=== PATIENT | female | born 1950 | race Caucasian/White ===

== ENCOUNTER 2019-11-28 13:55 | Outpatient (CLI) | payer MEDICARE, SELFPAY ==
--- NOTE | ~2019-11-28 | XR_ITS ---
XR shoulder LT min 2V DATE: 11/28/2019 14:18 INDICATION: Left shoulder pain, limited range of motion. No recent injury. TECHNIQUE: 4 views COMPARISON: None FINDINGS: No fracture or dislocation, periosteal reaction or bone destruction or abnormal soft tissue calcification. Multiple surgical clips overlie the cervical area, especially overlying the left thyroid area. Aortic arch calcification. IMPRESSION: No significant radiographic abnormality of the left shoulder Reviewed, dictated and finalized at location A.
== END 2019-11-28 13:56 | disposition home or self-care (01) ==
LOC: ANHIMG 14:00
PROVIDERS: PCP Family Medicine; Visit Provider Family Medicine
DX: M25.519 Pain in unspecified shoulder (principal)
CPT/HCPCS: 73030

== ENCOUNTER → 2020-05-13 10:59 | Outpatient (CLI) | payer MEDICARE, SELFPAY ==
--- NOTE | ~2020-05-13 | DEXA_ITS ---
Bone Density Report Name: Yomaira Asher Age: 69 Sex: Female Ethnicity: White Date of : 1950 Indication: osteopenia; monitoring treatment; parental hip fracture; postmenopausal Referring Provider: Florentino Nelson Study: Bone densitometry was performed. Exam Date: May 13, 2020 Accession number: [id number] Bone Density: Region BMD T-score Z-score Classification AP Spine (L1-L4) 0.965 -0.7 1.3 Normal Femoral Neck (Left) 0.557 -2.6 -0.9 Osteoporosis Total Hip (Left) 0.731 -1.7 -0.3 Osteopenia Femoral Neck (Right) 0.581 -2.4 -0.7 Osteopenia Total Hip (Right) 0.737 -1.7 -0.3 Osteopenia Total Hip Mean 0.734 -1.7 -0.3 Osteopenia World Health Organization criteria for BMD impression classify patients as: Normal (T-score at or above -1.0), Osteopenia (T-score between -1.0 and -2.5), or Osteoporosis (T-score at or below -2.5). 10-year Fracture Risk: FRAX not reported because: Some T-score for Spine Total or Hip Total or Femoral Neck at or below -2.5 Treated for osteoporosis Previous Exams: Region Exam Age BMD T-score BMD Change BMD Change Date g/cm2 vs Baseline vs Previous AP Spine(L1-L4) 05/13/2020 69 0.965 -0.7 -0.078* 0.075* 02/09/2018 67 0.890 -1.4 -0.153* -0.028* 07/08/2015 64 0.918 -1.2 -0.125* -0.115* 09/01/2010 59 1.033 -0.1 -0.010 0.020 04/04/2009 58 1.014 -0.3 -0.030* -0.012 01/31/2008 57 1.026 -0.2 -0.017 0.009 01/06/2007 56 1.017 -0.3 -0.027* -0.027* 11/09/2005 55 1.043 0.0 Total Hip(Left) 05/13/2020 69 0.731 -1.7 -0.076* 0.047* 02/09/2018 67 0.684 -2.1 -0.123* 0.027 07/08/2015 64 0.658 -2.3 -0.150* -0.111* 09/01/2010 59 0.768 -1.4 -0.039* -0.012 04/04/2009 58 0.780 -1.3 -0.028* 0.019 01/31/2008 57 0.760 -1.5 -0.047* 0.010 01/06/2007 56 0.751 -1.6 -0.057* -0.057* 11/09/2005 55 0.807 -1.1 Total Hip(Right) 05/13/2020 69 0.737 -1.7 -0.101* 0.047* 02/09/2018 67 0.690 -2.1 -0.148* -0.005 07/08/2015 64 0.696 -2.0 -0.142* -0.089* 09/01/2010 59 0.784 -1.3 -0.054* -0.012 04/04/2009 58 0.796 -1.2 -0.041* 0.041* 01/31/2008 57 0.755 -1.5 -0.083* 0.002 01/06/2007 56 0.753 -1.5 -0.084* -0.084* 11/09/2005 55 0.838 -0.9
--- NOTE | ~2020-05-13 | MM_ITS ---
EXAMINATION: MM screening [facility] BI w jose HISTORY: Screening TECHNIQUE: Craniocaudal and mediolateral oblique 3-D tomosynthesis images were obtained and synthetic 2-D images were generated. CAD analysis was submitted and interpreted. COMPARISON: Comparison to multiple prior studies sequentially, with oldest reviewed study dated 09/2011. BREAST PARENCHYMAL COMPOSITION: There are scattered areas of fibroglandular density. FINDINGS: There is no evidence of suspicious mass, calcification, or architectural distortion to sugg est malignancy in either breast. There has been no suspicious interval change. IMPRESSION: 1. No mammographic evidence of malignancy. 2. Recommend routine screening mammography in one year. BI-RADS Category 1: Negative Reviewed, dictated and finalized at location A. THESIOLOGY PHYSICIAN
== END ==
PROVIDERS: PCP Family Medicine; Visit Provider Family Medicine
DX: Z12.31 Encounter for screening mammogram for malignant neoplasm of breast (principal); M81.0 Age-related osteoporosis without current pathological fracture; M85.852 Other specified disorders of bone density and structure, left thigh; M85.851 Other specified disorders of bone density and structure, right thigh
CPT/HCPCS: 77063; 77067; 77080

== ENCOUNTER → 2021-09-08 10:07 | Outpatient (CLI) | payer MEDICARE, SELFPAY ==
--- NOTE | ~2021-09-08 | MM_ITS ---
EXAMINATION: MM screening [facility] BI w jose HISTORY: Screening TECHNIQUE: Craniocaudal and mediolateral oblique 3-D tomosynthesis images were obtained and synthetic 2-D images were generated. CAD analysis was submitted and interpreted. COMPARISON: Comparison to multiple prior studies sequentially, with oldest reviewed study dated 10/2013. BREAST PARENCHYMAL COMPOSITION: There are scattered areas of fibroglandular density. FINDINGS: There is no evidence of suspicious mass, calcification, or architectural distortion to sugg est malignancy in either breast. There has been no suspicious interval change. IMPRESSION: 1. No mammographic evidence of malignancy. 2. Recommend routine screening mammography in one year. BI-RADS Category 1: Negative Reviewed, dictated and finalized at location A.
== END ==
PROVIDERS: PCP Family Medicine; Visit Provider Family Medicine
DX: Z12.31 Encounter for screening mammogram for malignant neoplasm of breast (principal)
CPT/HCPCS: 77063; 77067

== ENCOUNTER → 2022-05-20 10:11 | Outpatient (CLI) | payer MEDICARE, SELFPAY ==
--- NOTE | ~2022-05-20 | DEXA_ITS ---
Bone Density Report Name: HILL CORONA Age: 71 Sex: Female Ethnicity: White Date of : 1950 Indication: osteopenia; monitoring treatment; parental hip fracture; postmenopausal Referring Provider: Marina Ortez Study: Bone densitometry was performed. Exam Date: May 20, 2022 Accession number: [id number] Bone Density: Region BMD T-score Z-score Classification AP Spine (L1-L4) 0.979 -0.6 1.5 Normal Femoral Neck (Left) 0.540 -2.8 -1.0 Osteoporosis Total Hip (Left) 0.738 -1.7 -0.1 Osteopenia Femoral Neck (Right) 0.565 -2.6 -0.7 Osteoporosis Total Hip (Right) 0.729 -1.7 -0.2 Osteopenia Total Hip Mean 0.734 -1.7 -0.2 Osteopenia World Health Organization criteria for BMD impression classify patients as: Normal (T-score at or above -1.0), Osteopenia (T-score between -1.0 and -2.5), or Osteoporosis (T-score at or below -2.5). 10-year Fracture Risk: FRAX not reported because: Some T-score for Spine Total or Hip Total or Femoral Neck at or below -2.5 Treated for osteoporosis Previous Exams: Region Exam Age BMD T-score BMD Change BMD Change Date g/cm2 vs Baseline vs Previous AP Spine(L1-L4) 05/20/2022 71 0.979 -0.6 -0.065* 0.014 05/13/2020 69 0.965 -0.7 -0.078* 0.075* 02/09/2018 67 0.890 -1.4 -0.153* -0.028* 07/08/2015 64 0.918 -1.2 -0.125* -0.115* 09/01/2010 59 1.033 -0.1 -0.010 0.020 04/04/2009 58 1.014 -0.3 -0.030* -0.012 01/31/2008 57 1.026 -0.2 -0.017 0.009 01/06/2007 56 1.017 -0.3 -0.027* -0.027* 11/09/2005 55 1.043 0.0 Total Hip(Left) 05/20/2022 71 0.738 -1.7 -0.069* 0.007 05/13/2020 69 0.731 -1.7 -0.076* 0.047* 02/09/2018 67 0.684 -2.1 -0.123* 0.027 07/08/2015 64 0.658 -2.3 -0.150* -0.111* 09/01/2010 59 0.768 -1.4 -0.039* -0.012 04/04/2009 58 0.780 -1.3 -0.028* 0.019 01/31/2008 57 0.760 -1.5 -0.047* 0.010 01/06/2007 56 0.751 -1.6 -0.057* -0.057* 11/09/2005 55 0.807 -1.1 Total Hip(Right) 05/20/2022 71 0.729 -1.7 -0.109* -0.008 05/13/2020 69 0.737 -1.7 -0.101* 0.047* 02/09/2018 67 0.690 -2.1 -0.148* -0.005 07/08/2015 64 0.696 -2.0 -0.142* -0.089* 09/01/2010 59 0.784 -1.3 -0.054* -0.012 04/04/2009 58 0.796 -1.2 -0.041* 0.041* 01/31/2008 57 0.755 -1.5
== END ==
PROVIDERS: PCP Emergency Medicine; Visit Provider Physician Assistant
DX: Z78.0 Asymptomatic menopausal state (principal); M81.0 Age-related osteoporosis without current pathological fracture; M85.852 Other specified disorders of bone density and structure, left thigh; M85.851 Other specified disorders of bone density and structure, right thigh
CPT/HCPCS: 77080

== ENCOUNTER → 2023-03-02 10:21 | Outpatient (CLI) | payer MEDICARE, SELFPAY ==
--- NOTE | ~2023-03-02 | MM_ITS ---
EXAMINATION: MM screening [facility] BI w jose HISTORY: Screening mammogram TECHNIQUE: Craniocaudal and mediolateral oblique 3-D tomosynthesis images were obtained and synthetic 2-D images were generated. CAD analysis was submitted and interpreted. COMPARISON: September 08, 2021, May 13, 2020, February 09, 2018 bilateral screening mammogram examinat ions BREAST PARENCHYMAL COMPOSITION: There are scattered areas of fibroglandular density. FINDINGS: Stable posterior upper outer quadrant benign-appearing left intramammary lymph nodes. Stabl e mild fibroglandular asymmetry. There is no evidence of suspicious mass, calcification, or android architect ural distortion to suggest malignancy in either breast. There has been no suspicious interval change. IMPRESSION: 1. No mammographic evidence of malignancy. 2. Recommend routine screening mammography in one year. BI-RADS Category 2: Benign finding(s). Reviewed, dictated and finalized at location A.
== END ==
PROVIDERS: PCP Nurse Practitioner Family; Visit Provider Nurse Practitioner Family
DX: Z12.31 Encounter for screening mammogram for malignant neoplasm of breast (principal)
CPT/HCPCS: 77063; 77067

== ENCOUNTER 2023-08-09 17:32 | Emergency (ER) | payer MEDICARE, SELFPAY ==
--- NOTE | 2023-08-09 17:39 | ED.SKABFB ---
HPI - Skin/Abscess/Foreign Bdy General Chief complaint: Skin/Abscess/Foreign Body Stated complaint: Rash Source: patient and RN notes reviewed Mode of arrival: ambulatory Limitations: no limitations History of Present Illness HPI narrative: Patient is a 72-year-old female who presents to the [facility] with complaints of rash to the back of her neck. She states that the rash has been present for the last couple weeks. She states that the rash developed about 1 week after getting a haircut with a shaved her neck for the 1st time. States that the rash has always been red and itchy. It will come and go. She denies any other symptoms. Related Data Home Medications Medication Instructions Recorded Confirmed aspirin 81 mg tablet,delayed 81 mg PO DAILY 06/26/19 07/04/23 release calcium citrate 250 mg PO DAILY 11/21/19 07/04/23 cholecalciferol (vitamin D3) 25 25 mcg PO DAILY 04/19/22 07/04/23 mcg (1,000 unit) capsule Allergies Allergy/AdvReac Type Severity Reaction Status Date / Time Sulfa (Sulfonamide Allergy Unknown Skin Verified 07/04/23 11:01 Antibiotics) Reaction Review of Systems Review of Systems: CONSTITUTIONAL: Denies fever, chills, or sweats. EYES: Denies visual changes, redness, or discharge. ENT: Denies otalgia and sore throat CARDIOVASCULAR: Denies chest pain, palpitations, or edema. RESPIRATORY: Denies cough or dyspnea. GASTROINTESTINAL: Denies abdominal pain, nausea, vomiting, or diarrhea. GENITOURINARY: Denies dysuria or hematuria. SKIN: Reports rash and itching. MUSCULOSKELETAL: Denies back pain, joint pain, or myalgia. NEUROLOGIC: Denies headache, numbness, or weakness. Pertinent positives per HPI. [facility] Surgical History Surgical History H/O laryngectomy Hx of cholecystectomy Family History Family History Mother Patient's mother is , Onset Age: 89 Family history of hypercholesterolemia Hypertension Family history of cardiovascular disease Acute myocardial infarction Father Patient's father is , Onset Age: 72 Family history of cardiovascular disease Acute myocardial infarction Grandparent Family history of malignant neoplasm Sibling Hypertension Family history of cardiovascular disease Family history of lung cancer Family history of malignant neoplasm of brain Family history of malignant neoplasm Other Family history of coronary artery disease Social History Social History Smoking status: Former smoker Smoking end date: 06/06/14 Alcohol intake: never Gender identity (if verbalized by the patient): Female Spiritual care concerns: No Comments At the time of my signature, I reviewed and agree with the nursing past medical, surgical, social, and family history. There is no relevant family history pertinent to the patient complaint. Exam Narrative: GENERAL: This is a well-nourished, well-developed patient, in no apparent distress. HEAD: normocephalic, atraumatic. EYES: Sclera clear/white. Vision is grossly intact. EARS: External ears normal. Hearing grossly intact. NOSE: External nose normal with no obvious nasal discharge, nares without redness, no rhinorrhea. THROAT: Mucous membranes moist, posterior pharynx clear. NECK: Neck supple, non-tender without lymphadenopathy, masses or thyromegaly. CARDIOVASCULAR: Regular rate and rhythm without murmurs, gallops, or rubs. RESPIRATORY: Clear to auscultation. Breath sounds equal bilaterally. No wheezes, rales, or rhonchi. GASTROINTESTINAL: Abdomen soft, non-tender, nondistended. Bowel sounds are active. No hepato-splenomegaly, or palpable masses. No guarding. SKIN: Macular papular rash noted to the posterior neck with itching. The rash is consistent with contact dermatitis. NEURO: awake, alert, and oriented to person
[2023-08-09 17:58] VITALS: BP 141/86; PULSE 93; RESP 16; TEMP 36.9; O2SAT 100
== END 2023-08-09 18:13 | disposition home or self-care (01) ==
PROVIDERS: Emergency Provider Nurse Practitioner; PCP Emergency Medicine
DX: L25.9 Unspecified contact dermatitis, unspecified cause (principal); Z87.891 Personal history of nicotine dependence; Z79.82 Long term (current) use of aspirin
CPT/HCPCS: 99213; G0463

== ENCOUNTER 2024-03-06 10:24 | Outpatient (CLI) | payer MEDICARE, SELFPAY ==
--- NOTE | ~2024-03-06 | MM_ITS ---
EXAMINATION: MM screening [facility] BI w jose HISTORY: Screening TECHNIQUE: Craniocaudal and mediolateral oblique 3-D tomosynthesis images were obtained and synthetic 2-D images were generated. CAD analysis was submitted and interpreted. COMPARISON: Comparison to multiple prior studies sequentially, with oldest reviewed study dated 07/2015. BREAST PARENCHYMAL COMPOSITION: Not dense: There are scattered areas of fibroglandular density. FINDINGS: There is no evidence of suspicious mass, calcification, or architectural distortion to sugg est malignancy in either breast. There has been no suspicious interval change. IMPRESSION: 1. No mammographic evidence of malignancy. 2. Recommend routine screening mammography in one year. BI-RADS Category 1: Negative Reviewed, dictated and finalized at location B.
== END 2024-03-06 10:25 | disposition home or self-care (01) ==
PROVIDERS: PCP Nurse Practitioner Family; Visit Provider Nurse Practitioner Family
DX: Z12.31 Encounter for screening mammogram for malignant neoplasm of breast (principal)
CPT/HCPCS: 77063; 77067

== ENCOUNTER 2024-03-26 15:19 | Emergency (ER) | payer MEDICARE, SELFPAY ==
[2024-03-26 15:31] VITALS: BP 152/70; PULSE 71; RESP 16; TEMP 36.7; O2SAT 100
--- NOTE | 2024-03-26 15:46 | ED.NECK ---
HPI - Neck Pain/Injury General Chief Complaint: Neck Pain/Injury Stated Complaint: Neck Pain Time Seen by Provider: 03/26/24 15:46 Source: patient Mode of arrival: ambulatory Limitations: no limitations History of Present Illness HPI Narrative: 73 yo F presents with c/o lump to R side of neck for 4 days. Noticed tenderness yesterday. No redness, warmth or drainage. Pt called PCP office and was told her doctor is out of the office. All systems reviewed and negative except as noted above. Related Data Home Medications Medication Instructions Recorded Confirmed aspirin 81 mg tablet,delayed 81 mg PO DAILY 06/26/19 03/26/24 release calcium citrate 250 mg PO DAILY 11/21/19 03/26/24 cholecalciferol (vitamin D3) 25 25 mcg PO DAILY 04/19/22 03/26/24 mcg (1,000 unit) capsule Allergies Allergy/AdvReac Type Severity Reaction Status Date / Time Sulfa (Sulfonamide Allergy Unknown Skin Verified 03/26/24 15:40 Antibiotics) Reaction Review of Systems Review of Systems: CONSTITUTIONAL: Denies fever, chills, or sweats. EYES: Denies visual changes, redness, or discharge. ENT: Denies rhinorrhea, congestion, sore throat, or otalgia. CARDIOVASCULAR: Denies chest pain, palpitations, or edema. RESPIRATORY: Denies cough or dyspnea. GASTROINTESTINAL: Denies abdominal pain, nausea, vomiting, or diarrhea. GENITOURINARY: Denies dysuria or hematuria. SKIN: Denies rash or itching. Patient reports lump to right side of neck. MUSCULOSKELETAL: Denies back pain, joint pain, or myalgia. NEUROLOGIC: Denies headache, numbness, or weakness. PSYCHIATRIC: Denies anxiety or depression. All other systems reviewed are negative, except as documented in HPI. [facility] Surgical History Surgical History H/O laryngectomy Hx of cholecystectomy Family History Family History Mother Patient's mother is , Onset Age: 89 Family history of hypercholesterolemia Hypertension Family history of cardiovascular disease Acute myocardial infarction Father Patient's father is , Onset Age: 72 Family history of cardiovascular disease Acute myocardial infarction Grandparent Family history of malignant neoplasm Sibling Hypertension Family history of cardiovascular disease Family history of lung cancer Family history of malignant neoplasm of brain Family history of malignant neoplasm Other Family history of coronary artery disease Social History Social History Smoking status: Former smoker Smoking end date: 06/06/14 Alcohol intake: never Gender identity (if verbalized by the patient): Female Spiritual care concerns: No Comments At time of signature, agree with nursing past medical, surgical, social and family history. There is no relevant family history pertinent to the presenting complaint. Exam Narrative: GENERAL: This is a well-nourished, well-developed patient, in no apparent distress. HEAD: normocephalic, atraumatic. EYES: PERRL. Sclera clear/white. Vision is grossly intact. EARS: External ears normal NOSE: External nose normal NECK: Neck supple, non-tender, masses or thyromegaly. lump to R side of neck at the base. possible supraclavicular lymph node vs cyst CARDIOVASCULAR: Regular rate and rhythm without murmurs, gallops, or rubs. RESPIRATORY: Clear to auscultation. Breath sounds equal bilaterally. No wheezes, rales, or rhonchi. SKIN: warm, Dry, intact with no suspicious lesions or rash, good texture and turgor. NEURO: awake, alert, and oriented to person, place and time. There were no obvious focal neurologic abnormalities. EXTREMITIES: No joint tenderness, effusion, or edema noted. Course Course Level of Care: Express Care Visit Vital Signs Vital signs: Vital Signs Temperature 36.7 C 03/26/24 15:31 Pulse Rate 71 10
== END 2024-03-26 16:03 | disposition home or self-care (01) ==
PROVIDERS: Emergency Provider Nurse Practitioner Family; PCP Emergency Medicine
DX: R22.1 Localized swelling, mass and lump, neck (principal); Z87.891 Personal history of nicotine dependence; Z79.82 Long term (current) use of aspirin
CPT/HCPCS: 99212; G0463

== ENCOUNTER 2024-03-30 10:11 | Outpatient (CLI) | payer MEDICARE, SELFPAY ==
--- NOTE | ~2024-03-30 | US_ITS ---
EXAMINATION: US soft tissue head and neck DATE: 03/30/2024 10:30 INDICATION: Enlarged cervical lymph nodes. TECHNIQUE: Multiple grayscale and Doppler ultrasound images of the head and neck were obtained. COMPARISON: CT neck 08/15/2013 FINDINGS: There are normal superficial lymph nodes in right neck in the patient's area of concern. IMPRESSION: 1. Normal superficial lymph node in right neck in the patient's area of concern. Reviewed, dictated and finalized at location A. IMPRESSION: 1. Normal superficial lymph node in right neck in the patient's area of concern .
== END 2024-03-30 10:12 | disposition home or self-care (01) ==
LOC: GOSHIMG 10:11
PROVIDERS: PCP Family Medicine; Visit Provider Nurse Practitioner Family
DX: R59.0 Localized enlarged lymph nodes (principal)
CPT/HCPCS: 76536

== ENCOUNTER 2024-05-22 09:48 | Outpatient (CLI) | payer MEDICARE, SELFPAY ==
--- NOTE | ~2024-05-22 | DEXA_ITS ---
Bone Density Report Name: HILL CORONA Age: 73 Sex: Female Ethnicity: White Date of : 1950 Indication: postmenopausal; screening for osteoporosis; parental hip fracture; Referring Provider: RASHAWN CHRISTIAN Study: Bone densitometry was performed. Exam Date: May 22, 2024 Accession number: [id number] Bone Density: Region BMD T-score Z-score Classification AP Spine(L1-L4) 1.024 -0.2 2.0 Normal Femoral Neck (Left) 0.592 -2.3 -0.4 Osteopenia Total Hip (Left) 0.800 -1.2 0.5 Osteopenia Femoral Neck (Right) 0.570 -2.5 -0.6 Osteoporosis Total Hip (Right) 0.810 -1.1 0.6 Osteopenia Total Hip Mean 0.805 -1.2 0.6 Osteopenia World Health Organization criteria for BMD impression classify patients as: Normal (T-score at or above -1.0), Osteopenia (T-score between -1.0 and -2.5), or Osteoporosis (T-score at or below -2.5). 10-year Fracture Risk: FRAX not reported because: Some T-score for Spine Total or Hip Total or Femoral Neck at or below -2.5 Clinical Information Provided by Patient: Parent has had a hip fracture Has used the following medications: Vitamin D, Calcium Patient maximum height was 62 Menopause Age: 51 No regular weight bearing exercise Does not regularly consume dairy products Drinks caffeinated beverages Onset of menses at age 14 Number of children 2 Impression: The patient has osteoporosis, based on the Right Femoral Neck T-score. The patient has risk factors, including: parental hip fracture. Discussion: INCREASED RISK OF FRACTURE. BONE DENSITY IS UNDESIRABLY LOW AT ONE OR MORE SKELETAL SITES, CONSISTENT WITH POSTMENOPAUSAL OSTEOPOROSIS. This patient's lowest T-score meets the World Health Organization's (WHO) criteria for osteoporosis at one or more sites (T-score -2.5 or below). In untreated patients, the risk of osteoporotic fracture increases approximately two-fold for each 1.0 SD decrease in T-score. Low bone density is not the only risk factor for fracture; also consider factors such as patient's age, frailty or poor health, risk of falling, risk of injury, previous osteoporotic fracture, family history of osteoporosis, cigarette smoking, low body weight, etc. Not everyone with low bone mineral density has osteoporosis; osteomalacia and other metabolic bone disorders should also be considered. Patients who have osteoporosis should be evaluated for specific diseases and conditions (secondary causes) that may cause or contribute to bone loss. The [place] [employer] Endocrinologists (AACE) and National Osteoporosis Foundation (NOF) recommend pharmacologic intervention for all postmenopausal women whose T-score is in this range. The patient should follow a healthful lifestyle (good nutrition with adequate calcium and vitamin D, and appropriate weight-bearing exercise). Follow-Up: Consider a repeat BMD and Vertebral Fracture Assessment (VFA) exam in 2 years or sooner if medically necessary, to reassess this patient's status. Reported by: HALEIGH on 05/22/2024 10:28:00 AM. Reviewed, dictated and finalized at location A. MARIA EUGENIA
== END 2024-05-22 09:49 | disposition home or self-care (01) ==
LOC: ANHIMG 09:49
PROVIDERS: PCP Emergency Medicine; Visit Provider Emergency Medicine
DX: M81.0 Age-related osteoporosis without current pathological fracture (principal); M85.852 Other specified disorders of bone density and structure, left thigh; M85.851 Other specified disorders of bone density and structure, right thigh
CPT/HCPCS: 77080

== ENCOUNTER 2024-06-07 09:36 | Outpatient (CLI) | payer MEDICARE, SELFPAY ==
[2024-06-07 12:56] LABS: Alanine Aminotransferase 17 U/L (6-35); Albumin Level 3.9 g/dL (3.5-5.1); Alkaline Phosphatase 53 U/L (38-126); Anion Gap 0 mmol/L (4-12); Aspartate Amino Transferase 33 U/L (14-36); Bilirubin,Total 0.6 mg/dL (0.2-1.3); Blood Urea Nitrogen 16 mg/dL (7-17); Calcium 9.8 mg/dL (8.4-10.2); Carbon Dioxide 29 mmol/L (22-30); Chloride 111 mmol/L (98-107); Cholesterol 149 mg/dL (0-200); Estimated Glomerular Filt Rate > 60; Glucose 85 mg/dL (65-110); HDL Direct 47 mg/dL; Potassium 4.5 mmol/L (3.4-5.0); Sodium 140 mmol/L (137-145); Triglycerides 68 mg/dL (<150)
[2024-06-07 13:11] LABS: LDL Cholesterol Direct 69 mg/dL
[2024-06-07 13:12] LABS: Free T4 Free Thyroxine 1.23 ng/dL (0.78-2.19)
== END 2024-06-07 09:37 | disposition home or self-care (01) ==
LOC: ANHGOSHLAB 09:37
PROVIDERS: PCP Emergency Medicine; Visit Provider Nurse Practitioner Family
DX: E78.5 Hyperlipidemia, unspecified (principal); I10 Essential (primary) hypertension; E53.8 Deficiency of other specified B group vitamins
CPT/HCPCS: 36415; 80053; 80061; 82607; 84439; 84443

== ENCOUNTER 2025-03-08 10:13 | Outpatient (CLI) | payer MEDICARE, SELFPAY ==
--- NOTE | ~2025-03-08 | MM_ITS ---
EXAMINATION: MM screening [facility] BI w jose HISTORY: Screening TECHNIQUE: Craniocaudal and mediolateral oblique 3-D tomosynthesis images were obtained and synthetic 2-D images were generated. CAD analysis was submitted and interpreted. COMPARISON: Comparison to multiple prior studies sequentially, with oldest reviewed study dated 08/10/2016. BREAST PARENCHYMAL COMPOSITION: Not dense: There are scattered areas of fibroglandular density. FINDINGS: There is no evidence of suspicious mass, calcification, or architectural distortion to suggest malignancy in either breast. There has been no suspicious interval change. IMPRESSION: 1. No mammographic evidence of malignancy. 2. Recommend routine screening mammography in one year. BI-RADS Category 1: Negative Reviewed, dictated and finalized at location B.
== END 2025-03-08 10:14 | disposition home or self-care (01) ==
LOC: MICIMG 10:15
PROVIDERS: PCP Family Medicine; Visit Provider Nurse Practitioner Family
DX: Z12.31 Encounter for screening mammogram for malignant neoplasm of breast (principal)
CPT/HCPCS: 77063; 77067